=== PATIENT | male | born 1985 | race Caucasian/White ===

== ENCOUNTER 2019-06-10 21:48 | Inpatient (IN) | payer MEDICAID ==
[~2019-06-10] VITALS: Ht 170.2 cm; Wt 99.8 kg
[2019-06-10 22:05] VITALS: BP 138/98
--- NOTE | 2019-06-10 22:13 | NUR ---
PT TO ER BED 5
[2019-06-10] MEDS ORDERED: NACL 0.9% 1,000 ML IV ONE (22:23)
[2019-06-10] MEDS ORDERED: ONDANSETRON 4 MG/2 ML VIAL IVP ONE (22:25)
[2019-06-10] MEDS ORDERED: MORPHINE SULFATE 4 MG/ML SYR IVP ONE (22:25)
--- NOTE | 2019-06-10 22:25 | NUR ---
33 Y/O M PRESENTS TO ER C/O LEFT AND RIGHT UPPER QUADRANT PAIN SINCE NOON. PER PT +NAUSEA -VOMIT +DIARRHEA. PAIN LEVEL 10/10 SHARP, COMES AND GOES WITH MOVEMENT. ABDOMEN IS SOFT, ROUND, AND TENDER TO TOUCH. NKA. NO MED HX. SAFETY MEASURES IN PLACE. ERMD AT BEDSIDE.
[2019-06-10 22:51] LABS: BASOPHILS % (AUTO) 0.3 % (0.0-2.0); EOSINOPHILS # (AUTO) 0.1 K/uL (0-0.4); EOSINOPHILS % (AUTO) 1.9 % (0.0-4.0); HEMATOCRIT 48.4 % (36-52); HEMOGLOBIN 16.2 g/dL (12.0-18.0); LYMPHOCYTES # (AUTO) 1.6 K/uL (2.0-11.5); LYMPHOCYTES % (AUTO) 24.7 % (20.5-51.1); MEAN CORPUSCULAR HEMOGLOBIN 31 pg (27-31); MEAN CORPUSCULAR HGB CONC 34 g/dL (33-37); MONOCYTES # (AUTO) 0.5 K/uL (0.8-1.0); MONOCYTES % (AUTO) 8.1 % (1.7-9.3); NEUTROPHILS # (AUTO) 4.3 K/uL (1.8-7.7); PLATELET COUNT (AUTO) 227 K/uL (140-450); RED BLOOD CELL COUNT(AUTO) 5.31 MIL/uL (4.20-6.10); RED CELL DISTRIBUTION WIDTH 12.6 % (11.6-13.7); WHITE BLOOD COUNT (AUTO) 6.6 K/uL (4.8-10.8)
--- NOTE | 2019-06-10 22:55 | NUR ---
BLOOD WORK AND URINE GIVEN TO LAB
[2019-06-10 23:08] LABS: ALBUMIN 3.4 g/dL (3.4-5.0); ANION GAP 9.4 (8-16); CARBON DIOXIDE 30.5 mmol/L (21-32); CREATININE 0.9 mg/dL (0.7-1.3); POTASSIUM 3.9 mmol/L (3.5-5.1); TOTAL BILIRUBIN 0.3 mg/dL (0.0-1.0)
--- NOTE | 2019-06-10 23:18 | NUR ---
PT RESTING IN BED WITH EYES CLOSED. VSS. WILL CONTINUE TO MONITOR.
[2019-06-10 23:32] LABS: APPEARANCE,URINE HAZY (CLEAR); BILIRUBIN,URINE NEGATIVE (NEGATIVE); BLOOD, URINE NEGATIVE (NEGATIVE); COLOR,URINE ORANGE (YELLOW); LEUKOCYTE ESTERASE ,URINE NEGATIVE (NEGATIVE); NITRITE, URINE NEGATIVE (NEGATIVE); PH,URINE 7.5 (5.0-9.0); UGLUCOSE NEGATIVE (NEGATIVE)
--- NOTE | 2019-06-10 23:39 | NUR ---
DR. SU AT PT BEDSIDE
[2019-06-10] MEDS ORDERED: DICYCLOMINE HCL LIQUID 20 MG, ALUMINUM HYD/MAG/SIMETHICONE 30 ML, LIDOCAINE VISCOUS 2% ... PO ONE ×3 (23:40)
[2019-06-10] MEDS ORDERED: MORPHINE SULFATE 10 MG/ML VIAL IVP ONE (23:40)
--- NOTE | 2019-06-11 00:09 | NUR ---
PT RETURNED FROM CT VIA W/C
--- NOTE | 2019-06-11 00:13 | NUR ---
PT STATES PAIN RELIEF. CURRENT PAIN LEVEL 03/29. VSS. WILL CONTINUE TO MONITOR.
--- NOTE | 2019-06-11 00:55 | NUR ---
PT STATES PAIN LEVEL INCREASED TO PAIN LEVEL 9/10. ERMD AT PT BEDSIDE REEVALUATING PT.
[2019-06-11] MEDS ORDERED: KETOROLAC 30 MG/ML VIAL IM ONE (01:00)
[2019-06-11] MEDS ORDERED: NACL 0.9% 1,000 ML IV ONE (01:00)
[2019-06-11] MEDS ORDERED: DICYCLOMINE 20 MG/2 ML VIAL IM ONE (01:00)
[2019-06-11] MEDS ORDERED: metroNIDAZOLE 500 MG/NS PREMIX 100 ML IV ONE (01:00)
[2019-06-11] MEDS ORDERED: LEVOFLOXACIN 750 MG/D5W PREMIX 150 ML IV ONE (01:00)
[2019-06-11] MEDS ORDERED: ONDANSETRON 4 MG/2 ML VIAL IM/IVP PRN (01:10)
[2019-06-11] MEDS ORDERED: MORPHINE SULFATE 2 MG/ML SYR IVP PRN (01:10)
[2019-06-11] MEDS ORDERED: HYDROcodone/APAP 7.5/325 MG 1 TAB PO PRN (01:10)
[2019-06-11] MEDS ORDERED: DICYCLOMINE HCL LIQUID 10 MG/5 ML UDC PO PRN (01:25)
--- NOTE | 2019-06-11 01:30 | NUR ---
PT RESTING IN BED WITH EYES CLOSED. VSS. PAIN LEVEL STILL 10. ERMD MADE AWARE.
[2019-06-11] MEDS ORDERED: MORPHINE SULFATE 4 MG/ML SYR IVP PRN (01:50)
[2019-06-11 01:53] LABS: BARBITURATE, URINE NEG. ng/ml (NEG <=200); BENZODIAZEPINE, URINE NEG. ng/mL (NEG <=200); CANNABINOID, URINE NEG. ng/mL (NEG <=50); COCAINE, URINE NEG. ng/mL (NEG <=300); OPIATE, URINE NEG. ng/mL (NEG <=2000); PHENCYCLIDINE SCREEN,URINE NEG. ng/mL (NEG <=25)
[2019-06-11 02:00] LABS: PROTHROMBIN TIME 9.9 secs (10.8-13.4)
[2019-06-11 02:01] LABS: CHOL/HDL RATIO 3.7 (1-4.5); FREE T4 (FREE THYROXINE) 0.79 ng/dL (0.76-1.46); PHOSPHORUS 3.3 mg/dL (2.5-4.9); THYROID STIMULATING HORMONE 1.92 uIU/mL (0.34-3.74)
--- NOTE | 2019-06-11 02:04 | NUR ---
PT LEFT CONTACT INFORMATION ANNAMARIE:
--- NOTE | 2019-06-11 02:34 | NUR ---
Patient will be admitted to care of Dr. Monsalve. Admited to [facility]. Will go to room 113. Belongings list completed. Report to CLINTON Harrell.
--- NOTE | 2019-06-11 02:34 | NUR ---
RECEIVED PATIENT FROM ED NURSE, NAVEED VIA WHEELCHAIR. PT IS AWAKE, ALERT, ORIENTED X4. PT IS AMBULATORY. PT SKIN IS INTACT. IV ON LEFT AC GAUGE 20, PATENT, INTACT AND STILL INFUSING LEVAQUIN. MRSA NARES SWAB TAKEN AND SENT TO LAB. PT IS ORIENTED TO FLOOR AND INITIAL ASSESSMENT DONE. CALL LIGHT WITHIN PT REACH. BED IN LOWEST POSITION. WILL CONTINUE TO MONITOR.
--- NOTE | 2019-06-11 02:34 | NUR ---
Transfer of care and report given to CLINTON Harrell
[2019-06-11] MEDS ORDERED: NACL 0.9% 1,000 ML IV SCH (03:00)
[2019-06-11 04:07] VITALS: BP 123/93
--- NOTE | 2019-06-11 04:30 | NUR ---
ROUNDS MADE. PT IS SLEEPING COMFORTABLY. NO DISTRESS OR SOB NOTED. WILL CONTINUE TO MONITOR.
[2019-06-11] MEDS ORDERED: BISMUTH SUBSALICYLATE 15 ML UDBTL PO PRN (05:20)
--- NOTE | 2019-06-11 06:00 | NUR ---
CONSENT FOR CT SCAN OF ABDOMEN WITH ORAL CONTRAST SIGNED BY PATIENT AND DR. GARRISON.
--- NOTE | 2019-06-11 06:28 | NUR ---
PT STARTED TO TAKE ORAL CONTRAST FOR CT OF ABDOMEN
[2019-06-11] MEDS ORDERED: PANTOPRAZOLE 40 MG TABEC PO SCH (06:30)
--- NOTE | 2019-06-11 06:54 | NUR ---
PT IN STABLE CONDITION. WILL ENDORSE TO AM SHIFT NURSE FOR CONTINUITY OF CARE.
--- NOTE | 2019-06-11 07:05 | NUR ---
RECEIVED BEDSIDE REPORT FROM NIGHT NURSE. PT ASLEEP, AROUSABLE TO SPEECH. AAOX4. PT DENIES PAIN AT THIS TIME. IV IN PLACE L AC 20G INFUSING PER ORDER, PATENT AND ASYMPTOMATIC. RESPIRATIONS EVEN AND UNLABORED ON ROOM AIR. SKIN INTACT, WARM AND DRY. SAFETY MEASURES IN PLACE. BED IN LOW POSITION. CALL LIGHT WITHIN REACH. WILL CONTINUE TO MONITOR.
[2019-06-11 08:00] VITALS: BP 123/86
--- NOTE | 2019-06-11 08:31 | NUR ---
PATIENT HAS BEEN SCREENED AND CATEGORIZED MODERATE NUTRITION RISK. PATIENT WILL BE SEEN WITHIN 3-5 DAYS OF ADMISSION. 06/13/19 06/15/[address]
--- NOTE | 2019-06-11 08:35 | NUR ---
MEDICATIONS ADMINISTERED PER ORDER. TOLERATED WELL. WILL CONTINUE TO MONITOR.
[2019-06-11 08:47] LABS: BASOPHILS % (AUTO) 0.4 % (0.0-2.0); EOSINOPHILS # (AUTO) 0.1 K/uL (0-0.4); EOSINOPHILS % (AUTO) 1.8 % (0.0-4.0); HEMATOCRIT 47.8 % (36-52); HEMOGLOBIN 15.8 g/dL (12.0-18.0); LYMPHOCYTES # (AUTO) 1.8 K/uL (2.0-11.5); LYMPHOCYTES % (AUTO) 27.9 % (20.5-51.1); MEAN CORPUSCULAR HEMOGLOBIN 30 pg (27-31); MEAN CORPUSCULAR HGB CONC 33 g/dL (33-37); MEAN CORPUSCULAR VOLUME 91.8 fL (80-94); MONOCYTES # (AUTO) 0.6 K/uL (0.8-1.0); MONOCYTES % (AUTO) 8.7 % (1.7-9.3); NEUTROPHILS # (AUTO) 4.1 K/uL (1.8-7.7); NEUTROPHILS % (AUTO) 61.2 % (42.2-75.2); PLATELET COUNT (AUTO) 224 K/uL (140-450); RED BLOOD CELL COUNT(AUTO) 5.21 MIL/uL (4.20-6.10); RED CELL DISTRIBUTION WIDTH 12.9 % (11.6-13.7); WHITE BLOOD COUNT (AUTO) 6.6 K/uL (4.8-10.8)
--- NOTE | 2019-06-11 08:56 | NUR ---
PT TRANSPORTED OFF UNIT FOR CT SCAN.
[2019-06-11] MEDS ORDERED: LACTOBACILLUS RHAMNOSUS GG 1 EACH CAP PO SCH (09:00)
[2019-06-11 09:08] LABS: ANION GAP 12.4 (8-16); CARBON DIOXIDE 27.8 mmol/L (21-32); CREATININE 0.8 mg/dL (0.7-1.3); POTASSIUM 4.2 mmol/L (3.5-5.1)
--- NOTE | 2019-06-11 09:10 | NUR ---
PT RETURNED TO UNIT FROM CT SCAN. WILL CONTINUE TO MONITOR.
[2019-06-11] MEDS ORDERED: PANT40EC28 PO (10:22)
[2019-06-11 13:08] VITALS: BP 123/86
[2019-06-11] MEDS ORDERED: INFLUENZA VACCINE QUAD 0.5 ML SYR IMVAC PRN (13:10)
--- NOTE | 2019-06-11 14:00 | NUR ---
PT READY TO BE DISCHARGED AT THIS TIME IN STABLE CONDITION. PT TRANSITIONED FROM CLEAR LIQUID DIET TO REGULAR DIET. TOLERATED WELL. NO DISTRESS NOTED. NO PAIN REPORTED. RESPIRATIONS EVEN AND UNLABORED. REMOVED IV WITH MINIMAL BLOOD LOSS AND LUMEN INTACT. DISCHARGE PACKET GIVEN. DISCHARGE PAPERWORK SIGNED BY PATIENT. FOLLOW UP EDUCATION GIVEN. PT WALKED OFF UNIT ACCOMPANIED BY HIS AND SOLDERER FURNACE WESLEY.
== END 2019-06-11 13:55 | disposition home or self-care (01) | DRG 249 ==
LOC: MED 21:48 → MTU 06-11 01:09
PROVIDERS: ADMIT General Practice; ATTEND General Practice
DX: K52.9 Noninfective gastroenteritis and colitis, unspecified (principal); K26.9 Duodenal ulcer, unspecified as acute or chronic, without hemorrhage or perforation; K76.0 Fatty (change of) liver, not elsewhere classified; N28.1 Cyst of kidney, acquired; E66.9 Obesity, unspecified; Z68.34 Body mass index [BMI] 34.0-34.9, adult; Z23 Encounter for immunization; K29.80 Duodenitis without bleeding
CPT/HCPCS: 36415; 71045; 80048; 80053; 80305; 81003; 82550; 83036; 83605; 83690; 83735; 83880; 84100; 84439; 84443; 85025; 85610; 85730; 87040; 87081; 96365; 96372; 96375; 96376; 99285; J0500; J1885; J1956; J2270; J2405; J3490; J7030; Q0092; Q9967

== ENCOUNTER 2022-04-14 03:10 | Emergency (ER) | payer MEDICAID ==
[~2022-04-14] VITALS: Ht 170.2 cm; Wt 93.0 kg
[~2022-04-14 03:10] MED LIST: PANT40EC56 PO
[2022-04-14 03:15] VITALS: BP 137/93
--- NOTE | 2022-04-14 03:15 | NUR ---
TO BED AMBULATORY
[2022-04-14] MEDS ORDERED: ACETAMINOPHEN 325 MG TAB PO ONE (03:35)
[2022-04-14] MEDS ORDERED: KETOROLAC 60 MG/2 ML VIAL IM ONE (04:10)
--- NOTE | 2022-04-14 04:27 | NUR ---
DR. NUNO AT BEDSIDE EVALUATING PT.
[2022-04-14] MEDS ORDERED: AMOX1TAB8 PO (06:24)
[2022-04-14] MEDS ORDERED: NAPR-54 PO (06:24)
[2022-04-14 06:31] VITALS: BP 111/79
== END 2022-04-14 06:30 | disposition home or self-care (01) ==
LOC: MED 03:10
DX: B34.9 Viral infection, unspecified (principal); Z79.899 Other long term (current) drug therapy
CPT/HCPCS: 96372; 99283; J1885

== ENCOUNTER 2022-11-29 18:25 | Emergency (ER) | payer MEDICAID ==
[~2022-11-29] VITALS: Ht 170.2 cm; Wt 90.7 kg
[~2022-11-29 18:25] MED LIST changes: +AMOX1TAB8 PO; +NAPR-54 PO
--- NOTE | 2022-11-29 18:25 | NUR ---
ERMD in triage for pt evaluation.
[2022-11-29 18:30] VITALS: BP 127/72
--- NOTE | 2022-11-29 21:02 | NUR ---
PATIENT LEFT WITHOUT BEING SEEN BY DR. BACA. NO FURTHER CARE PROVIDED FOR PATIENT.
== END 2022-11-29 21:02 | disposition left against medical advice (07) ==
LOC: MED 18:25
DX: R20.0 Anesthesia of skin (principal); Z53.21 Procedure and treatment not carried out due to patient leaving prior to being seen by health care provider
CPT/HCPCS: 99281